=== PATIENT | male | born 1990 ===

== ENCOUNTER 2018-06-11 11:05 | Outpatient (REF) | payer OTHER, SELFPAY ==
[2018-06-12 13:56] LABS: Chlamydia Result Negative; GC Result Negative; Specimen Description URINE
== END 2018-06-11 11:25 ==
LOC: NCHCN 11:05
PROVIDERS: Visit Provider Nurse Practitioner
DX: Z11.3 Encounter for screening for infections with a predominantly sexual mode of transmission (principal)
CPT/HCPCS: 87491; 87591